=== PATIENT | female | born 1970 | race Two or more races ===

== ENCOUNTER 2016-10-23 19:27 | Emergency (ER) | payer OTHER ==
[2016-10-23 19:51] LABS: SPECIFIC GRAVITY 1.015 (1.001-1.030); URINE BILIRUBIN NEGATIVE (NEGATIVE); URINE BLOOD NEGATIVE (NEGATIVE); URINE GLUCOSE (UA) NEGATIVE (NEGATIVE); URINE LEUKOCYTE ESTERASE NEGATIVE (NEGATIVE); URINE NITRITE NEGATIVE (NEGATIVE); URINE PROTEIN NEGATIVE (NEGATIVE); URINE UROBILINOGEN NORMAL (0-1 mg/dl)
[2016-10-23 19:53] LABS: URINE APPEARANCE CLEAR; URINE COLOR YELLOW
[2016-10-23 19:55] LABS: HCG,QUALITATIVE URINE NEGATIVE
[2016-10-23] MEDS ORDERED: KETOROLAC TROMETHAMINE 60 MG/2 ML VIAL ONE (21:08)
[2016-10-23] MEDS ORDERED: HYDROCODONE/ACETAMINOPHEN 5/325MG TABLET ONE (21:08)
--- NOTE | 2016-10-24 07:50 | RAD ---
CHEST - 2 VIEWS COMPARISON: None. HISTORY: Right flank pain for 2 weeks, worsening with pain. FINDINGS: Views: Frontal and lateral chest Lungs: Normal Heart and vessels: Normal Trachea and bronchi: Normal Mediastinum and migel: Normal Costophrenic sulci: Normal Chest wall and bones: Normal. Upper abdomen: Normal. IMPRESSION: Negative 2 view chest.
== END 2016-10-23 22:25 | disposition home or self-care (01) ==
LOC: ED 19:27
DX: S29.012A Strain of muscle and tendon of back wall of thorax, initial encounter (principal); R10.9 Unspecified abdominal pain; X58.XXXA Exposure to other specified factors, initial encounter; Y92.9 Unspecified place or not applicable
CPT/HCPCS: 81025; 81003; 71020; 99283 ×2; 96372; J1885; A9270